=== PATIENT | male | born 1975 | race Caucasian/White ===

== ENCOUNTER 2018-03-03 09:30 | Outpatient (REF) | payer BC, SELFPAY ==
[2018-03-03 13:18] LABS: HGB 16.9 g/dL (13.5-17.5); Mean Corp. HGB Concentration 33.1 g/dL (32.0-36.0); Mean Corpuscular Hemoglobin 30.5 pg (27.0-33.0); Mean Corpuscular Volume 92.1 fL (80-95); Mean Platelet Volume 11.9 fL (8.0-11.0); Neutrophils % 64.1; Platelet Count 231 x1000/uL (130-400); RBC 5.54 m/cumm (4.50-6.00); RBC Distribution Width 13.6 % (11.8-14.1); White Blood Cell Count 5.35 k/cumm (4.4-10.8)
[2018-03-03 13:19] LABS: Abs Immature Grans 0.01 k/cumm (0.0-0.09); Absolute Basophil Count 0.01 k/cumm (0.0-0.2); Absolute Eosinophil Count 0.12 k/cumm (0.0-0.7); Absolute Lymphocyte Count 1.33 k/cumm (1.2-3.4); Absolute Monocyte Count 0.45 k/cumm (0.11-0.7); Absolute Neutrophil Count 3.43 k/cumm (1.2-6.7); Basophils % 0.2; Eosinophils % 2.2; Immature Grans % 0.2; Lymphocytes % 24.9; Monocytes % 8.4
[2018-03-03 13:42] LABS: ALT 67 U/L (12-78); AST 29 U/L (15-37); Albumin 4.3 g/dL (3.4-5.0); Alkaline Phosphatase 73 U/L (46-116); BUN 21 mg/dL (7-18); Bilirubin, Total 0.6 mg/dL (0.2-1.0); CREATININE 1.12 mg/dL (0.70-1.30); Calcium 9.6 mg/dL (8.5-10.1); Chloride 104 mmol/L (98-107); Glucose 99 mg/dL (70-100); Potassium 4.5 mmol/L (3.5-5.1); Sodium 140 mmol/L (136-145); Total Protein 6.8 g/dL (6.4-8.2)
== END 2018-03-03 09:50 ==
LOC: NCHCN 09:30
PROVIDERS: PCP Nurse Practitioner Family; Visit Provider Family Medicine
DX: R10.11 Right upper quadrant pain (principal)
CPT/HCPCS: 80053; 85025

== ENCOUNTER 2018-03-11 10:44 | Day surgery (SDC) | payer BC, SELFPAY ==
--- NOTE | 2018-03-10 10:44 | ROE_ITS ---
DATE: MARCH 11, 2018 Preoperative Diagnosis: Left ring finger mass Postoperative Diagnosis: Left ring finger mass Operation: Excisional biopsy of left ring finger mass Anesthesia: Local Surgeon: Cornelio Chavez M.D. Findings: There was a dense and well circumscribed mass approximately 2 to 3 mm. in diameter residing within the soft tissues superficial to the flexor tendon. This was removed in whole and sent to the pathologist for evaluation. Complications: None Disposition: The patient was awakened from anesthesia and taken to Same Day Surgery area in stable condition. Indications: Dixon is a 43 year-old who noted a mass over the volar aspect of his left ring finger for some time. It does not bother him unless there is direct pressure. However, whenever he is driving a car or putting weight on his hand this is quite painful. It makes him actually have to stop activities due to the pressure of this nodule. It has not fluctuated in size but it has not gone away. It was well circumscribed and superficial and therefore appeared to be benign. I discussed treatment options with Dixon and did advocate for excisional biopsy so we could remove it and hopefully find the cause of symptoms and also find out what it is. I reviewed technical details of the surgery. I reviewed the possible risks to include bleeding, infection, pain, stiffness, recurrence, need for repeat procedure and damage to nerves and vessels. Despite these risks, he elected to proceed. Procedure: Dixon was greeted in the preoperative holding area. His identity was confirmed and the correct side was identified and marked. The consent was reviewed with the patient and signed. He was taken back to the Operating Room and placed in the supine position with the left hand on a hand-table. The left hand was prepped with ChloraPrep and draped in a standard fashion. No prophylactic antibiotics were necessary given this clean and elective hand procedure. A time-out was performed for safe surgery. The left ring finger mass was identified. It was previously marked on the skin prior to entering the Operating Room. A Rajan type incision was then planned overlying the cyst between the flexion creases of the PIP and DIP joints of the ring finger. The finger was then exsanguinated by gravity and a Kelly drain was placed around the base of the finger to act as a tourniquet. The Rajan incision was then made going through the skin sharply after the skin tenotomy scissors were used to free up the subcutaneous tissue. This was dissected sharply into the fat of the finger down towards the flexion tendon sheath. I was assuming this was going to be arising from the flexor tendon sheath or around the A-3 or A-4 zandra. However once the skin flap was raised, it was clear that the mass was actually located within the superficial structures above the flexor tendon. Between the skin and flexor tendon the mass was palpated. It was then dissected off the overlying skin. It was very nodular and hard with a white glistening surface measuring about 2 or so mm. in diameter. This was sent to pathology. The wound was then thoroughly irrigated. The skin was closed with three #4-0 nylons. The tourniquet was removed from the finger. A dressing of Xeroform, 4x4s and tube gauze was applied. Prior to placing the dressing, 0.5% Bupivacaine was injected around the incision site. At the end of the case all counts were correct. The specimen was sent to pathology. He was taken back to Day Surgery area in stable condition.
[2018-03-11 11:06] VITALS: BP 132/78; PULSE 80; RESP 16; TEMP 36.6; O2SAT 96
--- NOTE | 2018-03-11 12:24 | W.PM.DSUDISC ---
Discharge Plan Disposition Patient Disposition: HOME Discharge Details Reason For Visit: LRF GANGLION CYST Attending Provider: Cornelio Chavez Primary Care Provider: Jac Alvarez Home Meds and New Rx's Prescriptions: New ibuprofen 600 mg tablet 600 mg PO TID PRNQty: 60 RF: 3 acetaminophen 500 mg capsule 1,000 mg PO Q8H PRN (Reason: pain) Qty: 60 RF: 0 Continued quetiapine 25 mg tablet 25 mg PO DAILY RF: 0 citalopram 20 mg tablet 20 mg PO DAILY RF: 0 dicyclomine 20 mg tablet 20 mg PO DAILY RF: 0 Discharge Instructions Additional Instructions: Surgery: Excisional Biopsy of Left Ring Finger Mass Activity: You are able to perform light activities with the operative hand. It?s important to move your fingers early to keep from being stiff. Once the initial dressing is removed you should work on hand and wrist range of motions. You should avoid heavy lifting or grasping until your follow-up appointment. Light weight and computer work is okay. Dressing/Bandage: The dressing should stay on for at least 48-72 hours. The wound should then be covered with a dry dressing such as a bandaid. It should stay covered until sutures are removed. Medications: - Acetaminophen/Tylenol Extra-Strength: take two extra-strength tablets (1000mg) every 8 hours for baseline pain control. Do not take in combination with the prescribed pain medication since it contains Tylenol. You should not have more than 3000mg of Tylenol in a single day. - NSAIDs (Ibuprofen/Motrin/Advil/Aleve): you may take these medications as needed for pain control per note specialist?s recommendations. Follow-up: 7-10 days (next available). Partner to take out stitches in 5-7 days. Activity:: Elevate Remove Dressings/Wound Care:: 72 hours Shower/Bathe:: 72 hours Diet:: As Tolerated Discharge Orders Discharge Orders: Discharge Order (Routine); Ordered 03/11/18 Ordered By: Cornelio Chavez DS: Diagnosis Discharge Diagnosis (1) Ganglion cyst of flexor tendon sheath of finger of left hand: Status: Chronic
[2018-03-11] MEDS: Lidocaine 1% Multi-Dose 50 ML VIAL (12:33)
--- NOTE | 2018-03-11 12:40 | SKI_PTH ---
PATIENT: Dixon De Los Santos III LOC: [facility] U#:[id number] AGE/SX: 43/M ROOM: RE03/11/[address]: Cornelio Chavez MD : [id number] BED: DIS: 03/11/2018 SPEC #: [id number] RECD: 03/11/18 17:45 STATUS: MONTRELL REQ #: [id number] VETO: 03/11/18 12:[address]: Cornelio Chavez DEPT: Surgical Specimen RECD BY: Renetta Jacob ENTERED: 03/11/18 17:45 SP TYPE: ZHEN MACIAS DR: Jac Alvarez Tissues: 1 - SKIN BIOPSY(SHAVE/PUNCH) Procedures: IMMUNOPEROXIDASE STAIN SKIN LEVEL 4 Comments: [id number]
[2018-03-11] MEDS: Bupivacaine 0.5% Pres-Free 30 ML VIAL (12:50)
== END 2018-03-11 13:05 | disposition home or self-care (01) ==
PROVIDERS: PCP Family Medicine; Visit Provider Student in an Organized Health Care Education/Training Program
PROC: (CPT 26160; principal; 2018-03-11 13:45)
DX: D21.12 Benign neoplasm of connective and other soft tissue of left upper limb, including shoulder (principal)
CPT/HCPCS: 26115; 88305; 88361

== ENCOUNTER 2018-04-09 00:56 | Outpatient (CLI) | payer BC, SELFPAY ==
--- NOTE | 2018-04-09 09:00 | DI.NM_ITS ---
SYMPTOMS/DIAGNOSIS: RUQ ABD PAIN, R10.11, NAUSEA HEPATOBILIARY SCAN: The patient received 4.7 millicuries of Technetium 99 M Mebrofenin. The liver, bile ducts, gallbladder and small bowel were visualized at the appropriate time intervals. IMPRESSION: Normal hepatobiliary scan.
== END 2018-04-09 01:16 ==
PROVIDERS: PCP Family Medicine; Visit Provider Family Medicine
DX: R10.11 Right upper quadrant pain (principal); R11.0 Nausea
CPT/HCPCS: 78227

== ENCOUNTER 2018-04-20 11:19 | Outpatient (REF) | payer BC, SELFPAY ==
[2018-04-20 18:56] LABS: Abs Immature Grans 0.03 k/cumm (0.0-0.09); Absolute Basophil Count 0.03 k/cumm (0.0-0.2); Absolute Eosinophil Count 0.03 k/cumm (0.0-0.7); Absolute Monocyte Count 0.17 k/cumm (0.11-0.7); Absolute Neutrophil Count 8.73 k/cumm (1.2-6.7); Basophils % 0.3; Eosinophils % 0.3; HCT 52.6 % (40.0-50.0); Immature Grans % 0.3; Lymphocytes % 4.3; Mean Corp. HGB Concentration 32.3 g/dL (32.0-36.0); Mean Corpuscular Hemoglobin 29.8 pg (27.0-33.0); Mean Corpuscular Volume 92.1 fL (80-95); Monocytes % 1.8; Platelet Count 364 x1000/uL (130-400); RBC 5.71 m/cumm (4.50-6.00); RBC Distribution Width 13.4 % (11.8-14.1); White Blood Cell Count 9.39 k/cumm (4.4-10.8)
[2018-04-20 19:06] LABS: Mono Screening Negative (Negative)
[2018-04-22 10:08] LABS: HIV-1/2 Ag & Ab Screen Negative (NEGAT)
[2018-04-22 12:13] LABS: Syphilis Serology (RPR) Negative (Negative)
[2018-04-23 11:10] LABS: CMV IgG Antibody Positive
[2018-04-23 11:21] LABS: EBNA IgG Positive; EBV Interpretation SEE COMMENTS; VCA IgG Positive; VCA IgM Negative
== END 2018-04-20 11:39 ==
LOC: NCHCN 11:19
PROVIDERS: PCP Family Medicine; Visit Provider Family Medicine
DX: R59.1 Generalized enlarged lymph nodes (principal); R16.1 Splenomegaly, not elsewhere classified; R21 Rash and other nonspecific skin eruption; Z11.4 Encounter for screening for human immunodeficiency virus [HIV]
CPT/HCPCS: 87389; 85025; 86308; 86592; 86644; 86664; 86665

== ENCOUNTER 2019-03-02 18:33 | Outpatient (REF) | payer BC, SELFPAY ==
[2019-03-02 19:38] LABS: HCT 51.4 % (40.0-50.0); HGB 16.9 g/dL (13.5-17.5); Mean Corp. HGB Concentration 32.9 g/dL (32.0-36.0); Mean Corpuscular Hemoglobin 29.3 pg (27.0-33.0); Mean Corpuscular Volume 89.1 fL (80-95); Mean Platelet Volume 11.9 fL (8.0-11.0); Platelet Count 266 x1000/uL (130-400); RBC 5.77 m/cumm (4.50-6.00); RBC Distribution Width 13.8 % (11.8-14.1); White Blood Cell Count 7.57 k/cumm (4.4-10.8)
[2019-03-02 20:33] LABS: ALT 64 U/L (16-63); AST 25 U/L (15-37); Albumin 4.7 g/dL (3.4-5.0); Alkaline Phosphatase 81 U/L (46-116); Anion Gap 8.7 mmol/L (3-11); BUN 19 mg/dL (7-18); Bilirubin, Total 0.6 mg/dL (0.2-1.0); CO2 28.3 mmol/L (21.0-32.0); CREATININE 1.27 mg/dL (0.70-1.30); Calcium 10.1 mg/dL (8.5-10.1); Chloride 105 mmol/L (98-107); Glucose 86 mg/dL (74-106); Potassium 4.5 mmol/L (3.5-5.1); Sodium 142 mmol/L (136-145); TSH (W/Ref FT4) 2.19 uIU/mL (0.36-3.74); Total Protein 7.3 g/dL (6.4-8.2)
== END 2019-03-02 18:53 ==
LOC: NCHCN 18:33
PROVIDERS: PCP Family Medicine; Visit Provider Family Medicine
DX: Z79.899 Other long term (current) drug therapy (principal)
CPT/HCPCS: 80053; 85027; 84443

== ENCOUNTER 2019-04-19 00:45 | Outpatient (CLI) | payer BC, SELFPAY ==
--- NOTE | 2019-04-19 10:58 | DI.MRI_ITS ---
EXAM: MR LOWER JOINT RT WO CLINICAL HISTORY: KNEE PAIN RT, M25.561, 4 MO KNEE PAIN AFTER TWISTING INJURY. TECHNIQUE: Multiplanar multisequence MRI was performed. COMPARISON: MRI R LOWER JOINT WO CONT from 04/06/2009 FINDINGS: There is a small joint effusion. There is mild edema in the anterior cruciate ligament but no evidenc e of a focal disruption. The medial and lateral collateral ligaments and extensor mechanism as well as posterior cruciate ligament appear intact. The medial collateral ligament appears diminutive and peripherally displaced which is consistent with postsurgical and degenerative changes. There is a lindquist perimposed focal linear defect in the posterior horn at the inferior articular surface consistent wit h a superimposed tear. There is cartilage thinning over the medial femoral condyle and medial tibial plateau, extending down to bone at the posterior medial femoral condyle. Patellar cartilage appears intact. The lateral meniscus appears intact. IMPRESSION: Small focal inferior surfacing tear of the posterior horn of the medial meniscus. Postsurgical garcia es are seen of the medial meniscus.
== END 2019-04-19 01:05 ==
PROVIDERS: PCP Family Medicine; Visit Provider Family Medicine
DX: M25.561 Pain in right knee (principal); M25.461 Effusion, right knee; R60.0 Localized edema; S83.241A Other tear of medial meniscus, current injury, right knee, initial encounter
CPT/HCPCS: 73721

== ENCOUNTER 2020-08-31 03:54 | Outpatient (CLI) | payer BC, SELFPAY ==
[2020-08-31 07:33] LABS: Abs Immature Grans 0.03 10^3/uL (0.0-0.06); Absolute Basophil Count 0.03 10^3/uL (0.0-0.2); Absolute Eosinophil Count 0.17 10^3/uL (0.0-0.7); Absolute Lymphocyte Count 1.28 10^3/uL (1.2-3.4); Absolute Monocyte Count 0.53 10^3/uL (0.1-0.8); Absolute Neutrophil Count 5.05 10^3/uL (1.2-6.7); Basophils % 0.4; Eosinophils % 2.4; HCT 49.6 % (40.0-50.0); HGB 16.2 g/dL (13.5-17.5); Immature Grans % 0.4; Lymphocytes % 18.1; MCH 29.7 pg (27.0-33.0); MCHC 32.7 % (32.0-36.0); MPV 11.4 fL (8.0-11.0); Monocytes % 7.5; Neutrophils % 71.2; Nucleated RBC 0 %; Platelet Count 254 10^3/uL (130-400); RBC 5.45 10^6/uL (4.36-5.78); RDW 13.2 % (11.8-14.1); RDW-SD 44.1 fL; WBC 7.09 10^3/uL (4.4-10.8)
[2020-08-31 07:55] LABS: ALT 52 U/L (16-63); AST 18 U/L (15-37); Albumin 4.1 g/dL (3.4-5.0); Alkaline Phosphatase 79 U/L (46-116); Anion Gap 7.3 mmol/L (3-11); BUN 16 mg/dL (7-18); Bilirubin, Total 0.5 mg/dL (0.2-1.0); CO2 25.7 mmol/L (21.0-32.0); CREATININE 1.3 mg/dL (0.70-1.30); Calcium 9.1 mg/dL (8.5-10.1); Chloride 109 mmol/L (98-107); Estimated GFR 59.17 (mL/min/1.73m2); Glucose 96 mg/dL (74-106); Potassium 4.1 mmol/L (3.5-5.1); Sodium 142 mmol/L (136-145); TSH (W/Ref FT4) 2.78 uIU/mL (0.36-3.74)
[2020-08-31 10:08] LABS: Lithium 0.9 mmol/l (0.6-1.2)
[2020-09-03 11:57] LABS: Testosterone, Free 11.3 ng/dL (4.26-16.4); Testosterone, Total 436 ng/dL (240-950)
== END 2020-08-31 03:55 | disposition home or self-care (01) ==
LOC: LBO 03:54
PROVIDERS: PCP Family Medicine; Visit Provider Family Medicine
DX: R53.83 Other fatigue (principal); R16.1 Splenomegaly, not elsewhere classified; Z79.899 Other long term (current) drug therapy; Z51.81 Encounter for therapeutic drug level monitoring
CPT/HCPCS: 36415; 80053; 84402; 84403; 80178; 84443; 85025

== ENCOUNTER 2021-01-29 07:40 | Outpatient (REF) | payer BC, SELFPAY ==
[2021-01-30 00:14] LABS: Albumin 4.3 g/dL (3.4-5.0); BUN 17 mg/dL (7-18); Bilirubin, Total 0.8 mg/dL (0.2-1.0); CREATININE 1.2 mg/dL (0.70-1.30); Calcium 9.8 mg/dL (8.5-10.1); Glucose 105 mg/dL (74-106); Total Protein 6.6 g/dL (6.4-8.2)
[2021-01-30 00:15] LABS: ALT 61 U/L (16-63); AST 26 U/L (15-37); Alkaline Phosphatase 65 U/L (46-116); Anion Gap 10.9 mmol/L (3-11); CO2 23.1 mmol/L (21.0-32.0); Chloride 110 mmol/L (98-107); Potassium 4.6 mmol/L (3.5-5.1); Sodium 144 mmol/L (136-145)
[2021-01-30 18:19] LABS: PSA, Screening 0.5 ng/mL (0.0-2.5)
== END 2021-01-29 07:41 | disposition home or self-care (01) ==
LOC: NCHCN 07:40
PROVIDERS: PCP Family Medicine; Visit Provider Family Medicine
DX: R53.81 Other malaise (principal); Z79.899 Other long term (current) drug therapy; Z12.5 Encounter for screening for malignant neoplasm of prostate
CPT/HCPCS: 80053; 84153; 80178

== ENCOUNTER 2021-12-10 20:13 | Outpatient (REF) | payer SELFPAY ==
[2021-12-10 15:29] LABS: Abs Immature Grans 0.03 10^3/uL (0.0-0.06); Absolute Basophil Count 0.03 10^3/uL (0.0-0.2); Absolute Eosinophil Count 0.22 10^3/uL (0.0-0.7); Absolute Lymphocyte Count 1.46 10^3/uL (1.2-3.4); Absolute Monocyte Count 0.44 10^3/uL (0.1-0.8); Absolute Neutrophil Count 4.49 10^3/uL (1.2-6.7); Basophils % 0.4; Eosinophils % 3.3; HCT 49.7 % (40.0-50.0); HGB 15.7 g/dL (13.5-17.5); Immature Grans % 0.4; Lymphocytes % 21.9; MCH 29.4 pg (27.0-33.0); MCHC 31.6 % (32.0-36.0); MCV 93 fL (80-95); Monocytes % 6.6; Neutrophils % 67.4; Platelet Count 236 10^3/uL (130-400); RBC 5.34 10^6/uL (4.36-5.78); RDW 13.1 % (11.8-14.1); RDW-SD 44.6 fL; WBC 6.67 10^3/uL (4.4-10.8)
[2021-12-10 16:01] LABS: ALT 49 U/L (16-63); AST 22 U/L (15-37); Albumin 4.2 g/dL (3.4-5.0); Alkaline Phosphatase 71 U/L (46-116); Anion Gap 6.1 mmol/L (3-11); BUN 18 mg/dL (7-18); Bilirubin, Total 0.9 mg/dL (0.2-1.0); CO2 27.9 mmol/L (21.0-32.0); CREATININE 1.3 mg/dL (0.70-1.30); Calcium 9.3 mg/dL (8.5-10.1); Chloride 106 mmol/L (98-107); Estimated GFR 67.76 (mL/min/1.73m2); Glucose 96 mg/dL (74-106); Potassium 4.7 mmol/L (3.5-5.1); Sodium 140 mmol/L (136-145); TSH (W/Ref FT4) 2.08 uIU/mL (0.36-3.74); Total Protein 6.7 g/dL (6.4-8.2)
== END 2021-12-10 20:14 | disposition home or self-care (01) ==
LOC: NCHCN 20:13
PROVIDERS: PCP Family Medicine; Visit Provider Family Medicine
DX: R16.1 Splenomegaly, not elsewhere classified (principal); Z79.899 Other long term (current) drug therapy
CPT/HCPCS: 80053; 80178; 84443; 85025

== ENCOUNTER 2022-11-26 14:43 | Outpatient (CLI) | payer SELFPAY ==
[2022-11-26 09:06] LABS: Anion Gap 8.7 mmol/L (3-11); BUN 12 mg/dL (7-18); CO2 24.3 mmol/L (21.0-32.0); CREATININE 1.2 mg/dL (0.70-1.30); Calcium 9.5 mg/dL (8.5-10.1); Calculated LDL 105 mg/dL (<100); Chloride 104 mmol/L (98-107); Cholesterol 165 mg/dL (<200); Estimated GFR 74.13 (mL/min/1.73m2); Glucose 107 mg/dL (74-106); HDL Cholesterol 36 mg/dL (40-60); Potassium 4.1 mmol/L (3.5-5.1); Sodium 137 mmol/L (136-145); TSH (W/Ref FT4) 4.41 uIU/mL (0.36-3.74); Triglyceride 122 mg/dL (<150)
[2022-11-26 09:24] LABS: FREE T4 0.89 ng/dL (0.76-1.46)
[2022-11-26 11:45] LABS: Lithium 0.9 mmol/l (0.6-1.2)
== END 2022-11-26 14:44 | disposition home or self-care (01) ==
LOC: LBO 14:43
PROVIDERS: PCP Family Medicine; Visit Provider Family Medicine
DX: Z79.899 Other long term (current) drug therapy (principal); Z00.00 Encounter for general adult medical examination without abnormal findings
CPT/HCPCS: 36415; 80048; 80061; 80178; 83036; 84439; 84443

== ENCOUNTER 2023-11-25 11:01 | Outpatient (CLI) | payer SELFPAY ==
[2023-11-25 09:40] LABS: BUN 15 mg/dL (7-18); CREATININE 1.4 mg/dL (0.70-1.30); Calcium 9.3 mg/dL (8.5-10.1); Chloride 106 mmol/L (98-107); Estimated GFR 61.23 (mL/min/1.73m2); FREE T4 0.95 ng/dL (0.76-1.46); Glucose 136 mg/dL (74-106); Potassium 4.4 mmol/L (3.5-5.1); Sodium 141 mmol/L (136-145); TSH 2.51 uIU/Ml (0.36-3.74)
[2023-11-25 09:57] LABS: Lithium 0.5 mmol/L (0.6-1.2)
== END 2023-11-25 11:02 | disposition home or self-care (01) ==
LOC: LBO 11:09
PROVIDERS: PCP Family Medicine; Visit Provider Physician Assistant
DX: F31.9 Bipolar disorder, unspecified (principal)
CPT/HCPCS: 36415; 80048; 80178; 84439; 84443